=== PATIENT | female | born 1935 | race Caucasian/White ===

== ENCOUNTER → 2019-01-16 | Outpatient (CLI) | payer MEDICARE, BC ==
[~2019-01-16] MED LIST: ALPHAGAN 10 ML10 ML OU; ANTI-DIARRHEAL2 MG PO; ARICEPT 5MG PO; BUSPAR10 MG PO; COLACE 100100 MG/CAP PO; KLONOPIN 1MG1 MG PO; LEVOXYL0.025 MG PO; LOPRESSOR 225 MG/TAB PO; LUTEIN6 MG PO; MELATONIN5 M1 PO; MOTRIN 600600 MG/TAB PO; NORCO 325 MG-51 TAB PO; REMERON30 MG PO; SYNTHROID 0.0.025 MG PO; TUMS500 MG PO; XALATAN EYE DROPS OU
== END ==
LOC: COL.RAD 09:37
DX: C50.112 Malignant neoplasm of central portion of left female breast (principal)
CPT/HCPCS: A9503